=== PATIENT | male | born 2000 | race Caucasian/White ===

== ENCOUNTER 2018-07-31 09:34 | Emergency (ER) | payer BC ==
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
[2018-07-31] MEDS ORDERED: Cephalexin CAP* 500 MG PO ONE (11:01)
[2018-07-31] MEDS ORDERED: Benzocaine (DENTAL) 7.5%* 10 GM TOP.GEL TOPICAL ONE (11:13)
[2018-07-31] MEDS ORDERED: Benzocaine (DENTAL) 10%* TOP.GEL TOPICAL ONE (11:30)
[2018-07-31 12:18] VITALS: BP 131/86
== END 2018-07-31 12:17 | disposition home or self-care (01) ==
LOC: ED 09:34
DX: S01.511A Laceration without foreign body of lip, initial encounter (principal); Y04.2XXA Assault by strike against or bumped into by another person, initial encounter; J45.909 Unspecified asthma, uncomplicated; Z88.3 Allergy status to other anti-infective agents
CPT/HCPCS: 12011; 99281; A9270-GY